=== PATIENT | male | born 1965 | race Caucasian/White ===

== ENCOUNTER 2018-01-01 07:11 | Day surgery (SDC) | payer OTHER ==
[~2018-01-01] VITALS: Ht 190.5 cm; Wt 101.8 kg
[~2018-01-01 07:11] MED LIST: ASPI81CH PO; INH; PROAIR RESPICL90 MCG INH; SUDAFED 12-HOU120 M1 PO; Symbicort 16010.2 GM INH; TESTONE CI200 MG/1 M IM; ZYRTEC10 M1 PO
== END 2018-01-01 22:44 | disposition home or self-care (01) ==
LOC: MHTC 07:11
PROC: 065P3ZZ Destruction of Right Saphenous Vein, Percutaneous Approach (ICD-10-PCS; principal; 2018-01-01)
PROC: 3E033TZ Introduction of Destructive Agent into Peripheral Vein, Percutaneous Approach (ICD-10-PCS; principal; 2018-01-01)
DX: I87.2 Venous insufficiency (chronic) (peripheral) (principal); I83.811 Varicose veins of right lower extremity with pain; J45.909 Unspecified asthma, uncomplicated; G47.33 Obstructive sleep apnea (adult) (pediatric)
CPT/HCPCS: 36465; 36475; 99152; C1769; C1888; C1894; J1644; J2250; J2405; J3010; J7040

== ENCOUNTER 2018-09-10 08:43 | Day surgery (SDC) | payer OTHER ==
[~2018-09-10] VITALS: Ht 190.5 cm; Wt 104.7 kg
[~2018-09-10 08:43] MED LIST changes: +AZELASTINE137 MCG/0.; +Aspir 8181 MG PO; +Cialis20 MG PO; +Flonase 0.05% N16 GM; +Ipratropium Bro30 ML
== END 2018-09-10 10:46 | disposition home or self-care (01) ==
LOC: ORSCSDS 08:43
PROVIDERS: Internal Medicine Gastroenterology
PROC: 0DBM8ZX Excision of Descending Colon, Via Natural or Artificial Opening Endoscopic, Diagnostic (ICD-10-PCS; principal; 2018-09-10 10:00)
DX: Z12.11 Encounter for screening for malignant neoplasm of colon (principal); K63.5 Polyp of colon; K64.8 Other hemorrhoids; D45 Polycythemia vera; I10 Essential (primary) hypertension; G47.33 Obstructive sleep apnea (adult) (pediatric); E29.1 Testicular hypofunction; Z87.891 Personal history of nicotine dependence; Z79.82 Long term (current) use of aspirin; Z79.899 Other long term (current) drug therapy
CPT/HCPCS: 88305; J7120

== ENCOUNTER 2020-04-10 21:09 | Observation (INO) | payer OTHER ==
[~2020-04-10] VITALS: Ht 193 cm; Wt 109.0 kg
[2020-04-10 21:56] LABS: BASOPHILS ABSOLUTE AUTO 0.06 K/mm3 (0.00-0.23); BASOPHILS PERCENT AUTO 1 % (0-2); EOSINOPHILS ABSOLUTE AUTO 0.26 K/mm3 (0.00-0.68); EOSINOPHILS PERCENT AUTO 3 % (0-6); Hemoglobin 20.1 g/dL (13.5-17.5); IMMATURE GRAN ABSOLUTE AUTO 0.02 K/mm3 (0.00-0.10); IMMATURE GRAN PERCENT AUTO 0 % (0-1); LYMPHOCYTES PERCENT AUTO 24 % (21-46); MONOCYTES ABSOLUTE AUTO 0.79 K/mm3 (0.16-1.47); MONOCYTES PERCENT AUTO 9 % (4-13); Mean Corpuscular HGB 30.5 pg (26.0-34.0); Mean Corpuscular Volume 90 fL (80-100); Mean Platelet Volume 10.2 fL (9.1-12.4); NEUTROPHILS ABSOLUTE AUTO 5.86 K/mm3 (1.96-9.15); NEUTROPHILS PERCENT AUTO 64 % (41-73); Platelet Count 197 K/mm3 (150-400); RDW Coefficient Variation 14.2 % (11.7-14.2); RDW Standard Deviation 46.3 fL (35.1-46.3); Red Blood Cell Count 6.58 M/mm3 (4.30-5.90); White Blood Cell Count 9.19 K/mm3 (4.00-11.30)
[2020-04-10 21:58] LABS: Hematocrit 59.2 % (37.0-53.0)
[2020-04-10 22:19] LABS: Alanine Aminotransfer (ALT/SGP 39 U/L (12-78); Albumin, Blood 3.9 g/dL (3.4-5.0); Albumin/Globulin Ratio 1.1 (0.8-1.8); Alk Phos 65 U/L (50-136); Anion Gap 8 mmol/L (6-16); Aspartate Aminotrans (AST/SGOT 34 U/L (12-37); Bilirubin, Total 0.5 mg/dL (0.1-1.0); Blood Urea Nitrogen 28 mg/dL (8-24); Bun/Creatinine Ratio 24.8 (12.0-20.0); CO2, Blood 26 mmol/L (21-32); Calcium, Blood 9.5 mg/dL (8.5-10.1); Chloride, Blood 103 mmol/L (98-108); Creatinine, Blood 1.13 mg/dL (0.60-1.20); Globulin, Blood 3.7 g/dL (2.2-4.0); Glomerular Filtration Rate >60 (60-); Glucose, Blood 96 mg/dL (70-99); Potassium, Blood 4.3 mmol/L (3.5-5.5); Sodium, Blood 137 mmol/L (136-145); Total Protein, Blood 7.6 g/dL (6.4-8.2); Troponin I <0.015 ng/mL (0.000-0.040)
[2020-04-11 02:39] LABS: Source, Urine Clean Catch
[2020-04-11 02:43] LABS: Bilirubin, Urine Neg (Neg); Blood, Urine 2+ (Neg); Glucose Qualitative, Urine Neg (Neg); Ketones, Urine 4+ (Neg); Leukocyte Esterase, Urine Neg (Neg); Nitrite, Urine Neg (Neg); Protein, Urine Neg (Neg); Specific Gravity, Urine 1.025 (1.003-1.022); Urobilinogen, Urine NORM (Normal)
[2020-04-11 02:44] LABS: Appearance, Urine Clear (Clear); Color, Urine Yellow (P-Yellow)
[2020-04-11 02:49] LABS: Bacteria Mod /hpf; Red Blood Cells, Urine 0-2 /hpf (0-2); Squamous Epithelial Cells Not Seen /hpf (Few); White Blood Cells, Urine 0-2 /hpf (0-5)
--- NOTE | 2020-04-11 05:38 | NUR ---
SHIFT SUMMARY- NEW ADMIT FROM ED FOR CP AND DIZZINESS. A&OX4, PLEASANT, AND COOPEATIVE WITH CARE. PT. HAD NO COMPLAINTS THIS SHIFT. DENIED CP AND DIZZINESS LAST NIGHT. INSTRUCTED TO CALL NURSING STAFF FOR AMBULATION ASSISTANCE TO BATHROOM PRN, PT. VERBALIZED UNDERSTANDING. BEDTIME SNACK GIVEN, TOLERATED WELL. IV FLUIDS INFUSING AND SR ON TELE. NO ACUTE CHANGES, PT. RESTING QUIETLY IN BED. CALL LIGHT WITHIN REACH AND SIDE RAILS UPX2. WILL CONT TO MONITOR.
[2020-04-11 06:02] LABS: BASOPHILS ABSOLUTE AUTO 0.06 K/mm3 (0.00-0.23); BASOPHILS PERCENT AUTO 1 % (0-2); EOSINOPHILS PERCENT AUTO 4 % (0-6); Hematocrit 56.3 % (37.0-53.0); IMMATURE GRAN ABSOLUTE AUTO 0.03 K/mm3 (0.00-0.10); IMMATURE GRAN PERCENT AUTO 0 % (0-1); LYMPHOCYTES ABSOLUTE AUTO 2.34 K/mm3 (0.84-5.20); LYMPHOCYTES PERCENT AUTO 34 % (21-46); MONOCYTES ABSOLUTE AUTO 0.63 K/mm3 (0.16-1.47); MONOCYTES PERCENT AUTO 9 % (4-13); Mean Corpuscular HGB 30.8 pg (26.0-34.0); Mean Corpuscular HGB Conc 33.7 g/dL (31.5-36.5); Mean Corpuscular Volume 91 fL (80-100); Mean Platelet Volume 10.1 fL (9.1-12.4); NEUTROPHILS ABSOLUTE AUTO 3.51 K/mm3 (1.96-9.15); NEUTROPHILS PERCENT AUTO 51 % (41-73); Platelet Count 165 K/mm3 (150-400); RDW Coefficient Variation 14.1 % (11.7-14.2); RDW Standard Deviation 48.1 fL (35.1-46.3); Red Blood Cell Count 6.17 M/mm3 (4.30-5.90); White Blood Cell Count 6.87 K/mm3 (4.00-11.30)
[2020-04-11 06:33] LABS: Alanine Aminotransfer (ALT/SGP 34 U/L (12-78); Albumin, Blood 3.4 g/dL (3.4-5.0); Albumin/Globulin Ratio 1.1 (0.8-1.8); Alk Phos 53 U/L (50-136); Anion Gap 8 mmol/L (6-16); Aspartate Aminotrans (AST/SGOT 28 U/L (12-37); Bilirubin, Total 0.9 mg/dL (0.1-1.0); Blood Urea Nitrogen 27 mg/dL (8-24); Bun/Creatinine Ratio 30.4 (12.0-20.0); CO2, Blood 25 mmol/L (21-32); CPK Creatine Kinase 273 U/L (39-308); Chloride, Blood 105 mmol/L (98-108); Creatinine, Blood 0.89 mg/dL (0.60-1.20); Globulin, Blood 3.1 g/dL (2.2-4.0); Glomerular Filtration Rate >60 (60-); Glucose, Blood 96 mg/dL (70-99); Potassium, Blood 3.9 mmol/L (3.5-5.5); Sodium, Blood 138 mmol/L (136-145); Total Protein, Blood 6.5 g/dL (6.4-8.2); Troponin I <0.015 ng/mL (0.000-0.040)
--- NOTE | 2020-04-11 12:38 | NUR ---
PATIENT IS COMFORTABLE, AWAITING [employer] MANAGER AND 1400 LAB DRAW. NO ACUTE CONCERNS AT THIS TIME. PATIENT IS HOPING TO GO HOME AFTER HIS ECHO TODAY.
--- NOTE | 2020-04-11 14:06 | NUR ---
ECHOCARDIOGRAM COMPLETE
[2020-04-11 14:07] LABS: Hematocrit 55.6 % (37.0-53.0); Hemoglobin 18.9 g/dL (13.5-17.5)
[2020-04-11 14:25] LABS: CPK Creatine Kinase 202 U/L (39-308); Troponin I <0.015 ng/mL (0.000-0.040)
[2020-04-11] MEDS ORDERED: METO25ER PO (15:18)
--- NOTE | 2020-04-11 15:57 | NUR ---
PATIENT IS ALERT AND ORIENTED INDEPENDENT. NO ACUTE CONCERNS AT THIS TIME. NO ACUTE CONCERNS AT THIS TIME. HE HAS A FOLLOW UP APPOINTMENT SUNDAY, HE IS AWARE TO TAKE HIS BLOOD PRESSURE AT HOME PRIOR TO TAKING HIS MEDCIATION. IV REMOVED. ALL DISCHARGE INSTRUCTIONS GIVEN TO THE PATIENT. HE WAS WALKED DOWN BY TRUCK DRIVER FLATBED.
[2020-04-18] MEDS ORDERED: IBU800 M1 PO (23:52)
[2020-04-19] MEDS ORDERED: ATOR10 PO (11:08)
== END 2020-04-11 15:46 | disposition home or self-care (01) ==
LOC: ER 21:09 → MEDS 21:10
PROVIDERS: Internal Medicine; Physician Assistant; ADMIT Internal Medicine
DX: R07.89 Other chest pain (principal); D45 Polycythemia vera; I10 Essential (primary) hypertension; Z88.0 Allergy status to penicillin; Z88.8 Allergy status to other drugs, medicaments and biological substances; Z79.899 Other long term (current) drug therapy; Z79.82 Long term (current) use of aspirin
CPT/HCPCS: 36415; 71045; 80053; 81001; 82550; 84484; 85014; 85018; 85025; 85379; 87086; 93005; 93010; 93306; 99285-25; A9270-GY; G0378; J7030

== ENCOUNTER → 2023-05-24 | Outpatient (CLI) | payer OTHER ==
[~2023-05-24] MED LIST changes: +ATOR10 PO; +IBU800 M1 PO; +METO25ER PO; +VERA180ERB PO
[2023-05-24 18:47] LABS: BASOPHILS ABSOLUTE AUTO 0.06 K/mm3 (0.00-0.23); BASOPHILS PERCENT AUTO 1 % (0-2); EOSINOPHILS ABSOLUTE AUTO 0.21 K/mm3 (0.00-0.68); EOSINOPHILS PERCENT AUTO 3 % (0-6); Hematocrit 38.9 % (37.0-53.0); Hemoglobin 11.4 g/dL (13.5-17.5); IMMATURE GRAN ABSOLUTE AUTO 0.01 K/mm3 (0.00-0.10); IMMATURE GRAN PERCENT AUTO 0 % (0-1); LYMPHOCYTES ABSOLUTE AUTO 2.09 K/mm3 (0.84-5.20); LYMPHOCYTES PERCENT AUTO 34 % (21-46); MONOCYTES ABSOLUTE AUTO 0.65 K/mm3 (0.16-1.47); MONOCYTES PERCENT AUTO 11 % (4-13); Mean Corpuscular HGB 20.9 pg (26.0-34.0); Mean Corpuscular HGB Conc 29.3 g/dL (31.5-36.5); Mean Corpuscular Volume 71 fL (80-100); Mean Platelet Volume 10.5 fL (9.1-12.4); NEUTROPHILS PERCENT AUTO 51 % (41-73); Platelet Count 263 K/mm3 (150-400); RDW Coefficient Variation 19.4 % (11.7-14.2); RDW Standard Deviation 46.8 fL (35.1-46.3); Red Blood Cell Count 5.46 M/mm3 (4.30-5.90); White Blood Cell Count 6.12 K/mm3 (4.00-11.30)
== END | disposition home or self-care (01) ==
LOC: LAB SHORT 17:20 → LAB 17:20
PROVIDERS: Internal Medicine Hematology & Oncology
DX: D45 Polycythemia vera (principal)
CPT/HCPCS: 85025